=== PATIENT | female | born 1975 | race Caucasian/White ===

== ENCOUNTER 2017-11-20 21:35 | Emergency (ER) | payer BC ==
[2017-11-21 00:33] LABS: URINE PH (Dip) POC 5.5 (5.0-8.5)
[2017-11-21 00:33] LABS: URINE BLOOD (Dip) POC 3+ (NEGATIVE); URINE GLUCOSE (Dip) POC Negative (NEGATIVE); URINE KETONES (Dip) POC Negative (NEGATIVE); URINE LEUKOCYTE EST (Dip) POC Negative (NEGATIVE); URINE NITRITE (Dip) POC Negative (NEGATIVE); URINE TOTAL PROTEIN POC Negative (NEGATIVE)
[2017-11-21] MEDS: DIPHENHYDRAMINE 50 MG INJ IV (00:44)
[2017-11-21] MEDS: METOCLOPRAMIDE 10 MG INJ IV (00:44)
[2017-11-21] MEDS: SOD CHLORIDE 0.9% 1,000 ML IV (00:45)
== END 2017-11-21 02:04 | disposition home or self-care (01) ==
LOC: FTE 21:35
DX: R51 Headache (principal); I10 Essential (primary) hypertension
CPT/HCPCS: 81003; 96374; 96375; 99284-25